=== PATIENT | female | born 1980 | race Two or more races ===

== ENCOUNTER 2019-06-20 14:45 | Observation (INO) | payer MEDICAID ==
[~2019-06-20] VITALS: Ht 160 cm; Wt 57.2 kg
== END 2019-06-20 17:15 | disposition home or self-care (01) ==
LOC: 8 EST LDRP 14:45
PROVIDERS: ADMIT Specialist; ATTEND Specialist
DX: O36.8120 Decreased fetal movements, second trimester, not applicable or unspecified (principal); Z3A.27 27 weeks gestation of pregnancy
CPT/HCPCS: 76805; 76818; G0378; 99281